=== PATIENT | female | born 1985 | race Asian ===

== ENCOUNTER 2024-02-10 08:44 | Outpatient (CLI) | payer BC | END 2024-02-10 08:45 | disposition home or self-care (01) | LOC: NM 08:44 | PROVIDERS: ATTEND Family Medicine | DX: E05.90 Thyrotoxicosis, unspecified without thyrotoxic crisis or storm (principal) | CPT/HCPCS: 78014; A9516 ==

== ENCOUNTER 2025-02-09 09:38 | Outpatient (CLI) | payer BC, OTHER | END 2025-02-09 09:39 | disposition home or self-care (01) | LOC: BICRAD 09:38 | PROVIDERS: ATTEND Nurse Practitioner Family | DX: M54.2 Cervicalgia (principal); M47.812 Spondylosis without myelopathy or radiculopathy, cervical region; W10.8XXA Fall (on) (from) other stairs and steps, initial encounter | CPT/HCPCS: 72052 ==